=== PATIENT | female | born 2000 | race Caucasian/White ===

== ENCOUNTER 2019-06-07 13:11 | Emergency (ER) | payer OTHER ==
[~2019-06-07] VITALS: Ht 152.4 cm; Wt 98.0 kg
[2019-06-07] MEDS ORDERED: ACETAMINOPHEN 500 MG TABLET PO ONE (14:00)
[2019-06-07] MEDS ORDERED: ACETAMINOPHEN 500 MG TABLET ONE (14:12)
--- NOTE | 2019-06-07 15:08 | NUR ---
TASK RN: PT DC HOME IN A STABLE CONDITION. DC INSTRUCTIONS WERE DISCUSSED WITH PT. PT VERBALZIED UNDERSTANDING. NO FURTHER QUETIONS OR CONCERNS EXPRESSED AT THAT TIME.
[2019-06-07 15:10] VITALS: BP 109/73
== END 2019-06-07 15:15 | disposition home or self-care (01) ==
LOC: ED 13:44
DX: J20.9 Acute bronchitis, unspecified (principal); B34.9 Viral infection, unspecified
CPT/HCPCS: 99282